=== PATIENT | female | born 1945 | race Caucasian/White ===

== ENCOUNTER 2020-10-02 12:58 | Day surgery (SDC) | payer MEDICARE ==
[2020-10-01 11:55] LABS: ALBUMIN 2.9 g/dL (3.4-5.0); ANION GAP 6 mmol/L (5-15); CALCIUM 9.4 mg/dL (8.5-10.1); CHLORIDE 106 mmol/L (98-107)
[2020-10-01 11:59] LABS: ALANINE AMINOTRANSFERASE 18 U/L (12-78); ALKALINE PHOSPHATASE 94 U/L (45-117); BILIRUBIN,TOTAL 0.3 mg/dL (0.2-1.0); CREATININE 0.51 mg/dL (0.55-1.02); TOTAL PROTEIN 6.4 g/dL (6.4-8.2)
[~2020-10-02] VITALS: Ht 157.5 cm; Wt 60.0 kg
[~2020-10-02 12:58] MED LIST: ACET-1600 PO; ALLO300T PO; ATOR40TA78 PO; CHOL10003 PO; FOLI1TAB32 PO; LATA7.5D EACHEYE; LISI40TA9 PO; TEMA15CA PO; UBID100C24 PO
[2020-10-02 13:22] VITALS: BP 175/85
[2020-10-02] MEDS ORDERED: LIDOCAINE-MPF 1%, 2ML ONE (13:24)
[2020-10-02] MEDS ORDERED: CHLORHEXIDINE 15 ML UDC ONE (13:24)
[2020-10-02] MEDS ORDERED: LACTATED RINGERS 1,000 ML IV SCH (13:30)
[2020-10-02] MEDS ORDERED: LIDOCAINE-MPF 1%, 2ML INFIL ONE (13:30)
[2020-10-02] MEDS ORDERED: CHLORHEXIDINE 15 ML UDC PO ONE (13:30)
[2020-10-02 13:46] LABS: ANION GAP 8 mmol/L (5-15); CALCIUM 9.3 mg/dL (8.5-10.1); CHLORIDE 108 mmol/L (98-107); CREATININE 0.52 mg/dL (0.55-1.02)
[2020-10-02] MEDS ORDERED: PROPOFOL 10 MG/ML, 20ML ONE ×3 (13:49→13:57)
[2020-10-02] MEDS ORDERED: ACETAMINOPHEN 325 MG TABLET PO PRN (14:30)
[2020-10-02] MEDS ORDERED: LABETALOL 5MG/ML, 20ML IV PRN (14:30)
[2020-10-02] MEDS ORDERED: ALBUTEROL SULFATE 2.5 MG/3 ML NPPB PRN (14:30)
[2020-10-02] MEDS ORDERED: POTASSIUM CHLORIDE 40 MEQ in SODIUM CHLORIDE 0.9% 500 ML IV ONE (14:30)
[2020-10-02] MEDS ORDERED: FENTANYL PF 100 MCG/2ML IV PRN (14:30)
[2020-10-02] MEDS ORDERED: MEPERIDINE/PF 25MG/0.5ML IVPush PRN (14:30)
[2020-10-02] MEDS ORDERED: PROMETHAZINE 25 MG/ML, 1ML IVPush PRN (14:30)
[2020-10-02] MEDS ORDERED: PROMETHAZINE 12.5 MG SUPP PR PRN (14:30)
[2020-10-02] MEDS ORDERED: hydrALAzine 20 MG/ML, 1ML IV PRN (14:30)
[2020-10-02] MEDS ORDERED: MIDAZOLAM 1 MG/ML, 2ML IV PRN (14:30)
[2020-10-02] MEDS ORDERED: ONDANSETRON 2MG/ML, 2ML IVPush PRN (14:30)
[2020-10-02] MEDS ORDERED: HYDROmorphone 1 MG/ML, 1ML INJ IVPush PRN (14:30)
[2020-10-02] MEDS ORDERED: OXYcodone 5 MG/5 ML ORAL.SOL UDC PO PRN (14:30)
[2020-10-02] MEDS ORDERED: DIPHENHYDRAMINE 50 MG/ML, 1ML IVPush PRN ×2 (14:30)
[2020-10-02] MEDS ORDERED: DIAZEPAM 5 MG/ML, 2ML IVPush PRN (14:30)
[2020-10-02] MEDS ORDERED: EPHEDRINE 50 MG/ML, 1ML IVPush PRN (14:30)
[2020-10-02] MEDS ORDERED: MAGNESIUM SULFATE/D5W 100 ML IVPB ONE (15:30)
== END 2020-10-02 17:25 | disposition home or self-care (01) ==
LOC: OUT 12:58 → EDSTATUS 15:00 → OUT 17:25
PROVIDERS: ATTEND Internal Medicine
DX: K31.1 Adult hypertrophic pyloric stenosis (principal); K25.9 Gastric ulcer, unspecified as acute or chronic, without hemorrhage or perforation; D64.9 Anemia, unspecified; I10 Essential (primary) hypertension; M10.9 Gout, unspecified; E87.6 Hypokalemia; Z20.822 Contact with and (suspected) exposure to COVID-19; Z79.899 Other long term (current) drug therapy; Z90.49 Acquired absence of other specified parts of digestive tract; Z98.890 Other specified postprocedural states; Z80.1 Family history of malignant neoplasm of trachea, bronchus and lung
CPT/HCPCS: 36415; 43239; 43259; 80048; 80053; 83735; 88305; 88341; 88342; 93005; J2704; J3480; J7040; J7120; U0003; U0005

== ENCOUNTER 2020-10-17 08:10 | Observation (INO) | payer MEDICARE ==
[~2020-10-17] VITALS: Ht 157.5 cm; Wt 65.5 kg
[2020-10-17] MEDS ORDERED: LACTATED RINGERS 1,000 ML IV SCH (09:00)
[2020-10-17 09:07] VITALS: BP 175/101
[2020-10-17] MEDS ORDERED: PLEASE ENTER HEIGHT AND WEIGHT MC SCH (09:30)
[2020-10-17] MEDS ORDERED: CHLORHEXIDINE 15 ML UDC PO ONE (09:30)
[2020-10-17 09:46] LABS: ALANINE AMINOTRANSFERASE 19 U/L (12-78); ALBUMIN 4.2 g/dL (3.4-5.0); ANION GAP 8 mmol/L (5-15); CALCIUM 10.6 mg/dL (8.5-10.1); CHLORIDE 107 mmol/L (98-107); CREATININE 0.56 mg/dL (0.55-1.02)
[2020-10-17 09:48] LABS: ALKALINE PHOSPHATASE 137 U/L (45-117); BILIRUBIN,TOTAL 0.3 mg/dL (0.2-1.0)
[2020-10-17] MEDS ORDERED: EPINEPHRINE 1 MG/ML, 1ML ONE (10:30)
[2020-10-17] MEDS ORDERED: BUPIVACAINE/PF 0.5% ONE (10:30)
[2020-10-17] MEDS ORDERED: FENTANYL PF 100 MCG/2ML ONE ×2 (11:18→12:37)
[2020-10-17] MEDS ORDERED: HYDROmorphone 1 MG/ML, 1ML INJ ONE (11:18)
[2020-10-17] MEDS ORDERED: METRONIDAZOLE PMX 500MG/100ML 100 ML ONE (11:26)
[2020-10-17] MEDS ORDERED: METOCLOPRAMIDE 5 MG/ML, 2ML IVPush PRN (11:30)
[2020-10-17] MEDS ORDERED: HYDROmorphone 1 MG/ML, 1ML INJ IVPush PRN (11:30)
[2020-10-17] MEDS ORDERED: OXYcodone 5 MG/5 ML ORAL.SOL UDC PO PRN (11:30)
[2020-10-17] MEDS ORDERED: DIPHENHYDRAMINE 50 MG/ML, 1ML IVPush PRN (11:30)
[2020-10-17] MEDS ORDERED: ONDANSETRON 2MG/ML, 2ML IVPush PRN ×2 (11:30→12:30)
[2020-10-17] MEDS ORDERED: HALOPERIDOL 5 MG/ML IV PRN (11:30)
[2020-10-17] MEDS ORDERED: KETOROLAC 30 MG/1 ML IV PRN (11:30)
[2020-10-17] MEDS ORDERED: hydrALAzine 20 MG/ML, 1ML IV PRN ×2 (11:30→12:30)
[2020-10-17] MEDS ORDERED: DIAZEPAM 5 MG/ML, 2ML IVPush PRN (11:30)
[2020-10-17] MEDS ORDERED: FENTANYL PF 100 MCG/2ML IV PRN (11:30)
[2020-10-17] MEDS ORDERED: METOPROLOL 1 MG/ML, 5ML IV PRN (11:30)
[2020-10-17] MEDS ORDERED: EPHEDRINE 50 MG/ML, 1ML IVPush PRN (11:30)
[2020-10-17] MEDS ORDERED: PROMETHAZINE 25 MG/ML, 1ML IVPush PRN (11:30)
[2020-10-17] MEDS ORDERED: ACETAMINOPHEN 325 MG TABLET PO PRN (11:30)
[2020-10-17] MEDS ORDERED: LABETALOL 5MG/ML, 20ML IV PRN (11:30)
[2020-10-17] MEDS: PANTOPRAZOLE 40 MG IV IVPush SCH (12:30)
[2020-10-17] MEDS ORDERED: PROMETHAZINE 25 MG/ML, 1ML IM PRN (12:30)
[2020-10-17] MEDS ORDERED: morphine SULFATE 10 MG/ML, 1ML IV PRN (12:30)
[2020-10-17] MEDS ORDERED: ENALAPRILAT 1.25 MG/ML, 2ML IV PRN (12:30)
[2020-10-17] MEDS ORDERED: PROMETHAZINE 12.5 MG SUPP PR PRN (12:30)
[2020-10-17] MEDS ORDERED: POTASSIUM CHLORIDE 20 MEQ in SODIUM CHLORIDE 0.9% 250 ML IV ONE (12:30)
[2020-10-17] MEDS ORDERED: HYDR15SO3 PO (12:55)
[2020-10-17] MEDS ORDERED: OMEP20CA20 PO (12:55)
[2020-10-17] MEDS ORDERED: METHOCARBAMOL 1,000 MG in DEXTROSE 5% 100 ML IV ONE (14:00)
[2020-10-17 14:14] VITALS: BP 167/83
[2020-10-17 18:41] VITALS: BP 143/77
[2020-10-17] MEDS ORDERED: HYDROcodone/APAP 7.5-325MG/15ML UDC PO PRN (20:00)
[2020-10-18] MEDS ORDERED: ONDANSETRON 2MG/ML, 2ML ONE
[2020-10-18] MEDS ORDERED: CEFAZOLIN 1,000 MG ONE
[2020-10-18] MEDS ORDERED: PROPOFOL 10 MG/ML, 20ML ONE
[2020-10-18] MEDS ORDERED: PHENYLEPHRINE 10 MG/ML ONE
[2020-10-18] MEDS ORDERED: DEXAMETHASONE 4 MG/ML, 1ML ONE
[2020-10-18] MEDS ORDERED: GLYCOPYRROLATE 0.2MG/1ML, 5ML ONE
[2020-10-18] MEDS ORDERED: ROCURONIUM 10 MG/ML,10ML ONE
[2020-10-18] MEDS ORDERED: NEOSTIGMINE 1 MG/ML, 10ML ONE
[2020-10-18 00:11] VITALS: BP 162/82
[2020-10-18 00:35] VITALS: BP 152/77
[2020-10-18 04:33] VITALS: BP 155/76
[2020-10-18 05:29] LABS: ANION GAP 8 mmol/L (5-15); CALCIUM 8.4 mg/dL (8.5-10.1); CHLORIDE 102 mmol/L (98-107); CREATININE 0.68 mg/dL (0.55-1.02)
[2020-10-18 07:10] VITALS: BP 151/82
[2020-10-18] MEDS ORDERED: POTASSIUM CHLORIDE 20 MEQ PACKET PO SCH (09:00)
[2020-10-18] MEDS: PANTOPRAZOLE 40 MG IV IVPush SCH (09:24)
[2020-10-18] MEDS ORDERED: ENOXAPARIN 40 MG/0.4 ML SQ SCH (12:30)
== END 2020-10-18 11:00 | disposition home or self-care (01) ==
LOC: OUT 08:10 → 4NE 13:44 → OUT 23:59 → 4NE 10-18 → DCLOUNGE 10-18 10:50
PROVIDERS: ADMIT Thoracic Surgery (Cardiothoracic Vascular Surgery); ATTEND Thoracic Surgery (Cardiothoracic Vascular Surgery)
DX: K31.1 Adult hypertrophic pyloric stenosis (principal); Z20.822 Contact with and (suspected) exposure to COVID-19; K25.9 Gastric ulcer, unspecified as acute or chronic, without hemorrhage or perforation; R13.10 Dysphagia, unspecified; I10 Essential (primary) hypertension; M10.9 Gout, unspecified; E78.00 Pure hypercholesterolemia, unspecified; J45.909 Unspecified asthma, uncomplicated; Z85.828 Personal history of other malignant neoplasm of skin; Z79.899 Other long term (current) drug therapy
CPT/HCPCS: 36415; 43659; 80053; 87635; 96365; 96375; B4087; C9113; G0378; J0171; J0690; J1100; J1170; J2370; J2405; J2704; J2710; J2800; J3010; J3480; J7050; J7120; S0020; 80048